=== PATIENT | female | born 1965 | race Two or more races ===

== ENCOUNTER 2021-01-28 10:40 | Emergency (ER) | payer MEDICAID, OTHER ==
[~2021-01-28] VITALS: Ht 154.9 cm; Wt 77.1 kg
[2021-01-28 13:48] VITALS: BP 134/86
[2021-01-28] MEDS ORDERED: EPINEPHrine HCL 1 MG/1 ML AMP SC ONE (14:00)
[2021-01-28] MEDS ORDERED: methylPREDNISolone SOD SUCC 125 MG/2 ML VL IM ONE (14:00)
[2021-01-28] MEDS ORDERED: diphenhdrAMINE HCL 50 MG/1 ML VL IM ONE (14:00)
== END 2021-01-28 14:54 | disposition home or self-care (01) ==
LOC: ER 10:40
DX: T78.40XA Allergy, unspecified, initial encounter (principal); X58.XXXA Exposure to other specified factors, initial encounter
CPT/HCPCS: 96372; 99284; J0171; J1200; J2930

== ENCOUNTER 2021-02-06 09:13 | Emergency (ER) | payer MEDICAID ==
[~2021-02-06] VITALS: Ht 152.4 cm; Wt 79.4 kg
[2021-02-06 10:01] VITALS: BP 145/91
[2021-02-06] MEDS ORDERED: ACETAMINOPHEN/CODEINE#3 (300/30mg) TAB PO ONE (11:15)
[2021-02-06] MEDS ORDERED: ONDANSETRON ODT 4 MG TAB PO ONE (11:15)
== END 2021-02-06 11:48 | disposition home or self-care (01) ==
LOC: ER 09:13
DX: G44.209 Tension-type headache, unspecified, not intractable (principal); J45.909 Unspecified asthma, uncomplicated
CPT/HCPCS: 70450; 99284; Q0162

== ENCOUNTER 2022-02-24 09:38 | Inpatient (IN) | payer MEDICAID ==
[~2022-02-24] VITALS: Ht 152.4 cm; Wt 73.4 kg
[2022-02-24 10:29] LABS: Basophils # (auto) 0.1 10 ^3/uL (0-0.2); Basophils % (auto) 0.8 % (0.0-2.0); Eosinophils # (auto) 0.2 10 ^3/uL (0-0.8); Eosinophils % (auto) 3.3 % (0.0-7.0); Hematocrit 43.4 % (36.0-46.0); Hemoglobin 14.4 g/dL (12.2-16.2); Lymphocytes % (auto) 14.5 % (10.0-50.0); Mean Corpuscular Hemoglobin 28.6 pg (28.0-32.0); Mean Corpuscular Hgb Conc. 33.2 g/dL (32.0-36.0); Mean Corpuscular Volume 86.2 fL (80.0-100.0); Monocytes # (auto) 0.5 10 ^3/uL (0-1.3); Monocytes % (auto) 7.3 % (0.0-12.0); Neutrophils # (auto) 5.3 10 ^3/uL (1.6-8.6); Neutrophils % (auto) 74.1 % (37.0-80.0); Red Blood Cells 5.04 10^6/uL (4.0-5.20); Red Cell Distribution Width 14.7 % (11.8-14.3); White Blood Cell 7.1 10^3/uL (4.4-10.8)
[2022-02-24 10:40] LABS: Urine WBC None Seen /hpf (0 - 5)
[2022-02-24] MEDS ORDERED: ACETAMINOPHEN 500 MG TAB PO ONE (10:45)
[2022-02-24] MEDS ORDERED: cefTRIAXone 1GM/50ML D5W 50 ML IV ONE (10:45)
[2022-02-24] MEDS ORDERED: SODIUM CHLORIDE 0.9% 1,000 ML IV ONE (10:45)
[2022-02-24] MEDS ORDERED: ALBUTEROL SULF 2.5 MG/0.5ML(0.5%) NEB SOLN NEB ONE ×2 (10:45→15:15)
[2022-02-24] MEDS ORDERED: AZITHROMYCIN 500MG/ 250ML 250 ML IV ONE (10:45)
[2022-02-24] MEDS ORDERED: ASPirin 81 mg TAB PO ONE (10:45)
[2022-02-24] MEDS ORDERED: IPRATROPIUM BROM 0.5 MG/2.5ML INH SOL NEB ONE ×2 (10:45→15:15)
[2022-02-24 10:48] LABS: BUN/Creatinine Ratio 12.9; Calcium 8.5 mg/dL (8.5-10.1)
[2022-02-24 10:50] LABS: Bilirubin, Total 0.7 mg/dL (0.2-1.0); Total Protein 7.1 g/dL (6.4-8.2)
[2022-02-24 10:59] LABS: Urine Bacteria NONE SEEN /hpf (None Seen); Urine Blood Negative /uL (Negative); Urine Specific Gravity 1.017 (1.001-1.035)
[2022-02-24 14:09] LABS: INR 0.97 (0.9-1.15); Partial Thromboplastin Time 27.2 sec (24.6-33.4)
[2022-02-24] MEDS ORDERED: DEXTROSE (50%) 50ML SYRG IV PRN (16:15)
[2022-02-24] MEDS ORDERED: ONDANSETRON HCL 4 MG/2 ML VIAL IV PRN (16:15)
[2022-02-24] MEDS ORDERED: DOCUSATE SOD 100 MG CAP PO PRN (16:15)
[2022-02-24] MEDS ORDERED: NITROGLYCERIN 0.4 MG SL TAB SL PRN (16:15)
[2022-02-24] MEDS ORDERED: MORPHINE SULFATE INJ 2 MG/ml SYRG IV PRN (16:15)
[2022-02-24] MEDS ORDERED: HYDROmorphone HCL 2 MG/ML VL/or syr IV PRN (16:15)
[2022-02-24] MEDS ORDERED: ACETAMINOPHEN 325 MG TAB PO PRN (16:15)
[2022-02-24] MEDS: ENOXAPARIN SOD 40 MG/0.4 ML SYRINGE SC SCH (16:56)
[2022-02-24] MEDS: ACCU-CHEK COMFORT CURVE STRIP VI SCH (16:57)
[2022-02-24] MEDS: methylPREDNISolone SOD SUCC 125 MG/2 ML VL IV SCH (16:57)
[2022-02-24] MEDS: InsuLIN REG 1unit/0.01ml Soln (100units/ml) SC SCH ×2 (17:04→21:44)
[2022-02-24] MEDS ORDERED: MONT-8 PO (19:07)
[2022-02-24] MEDS ORDERED: METF-370 PO (19:07)
[2022-02-24] MEDS ORDERED: ATOR20TA50 PO (19:07)
[2022-02-24 19:18] VITALS: BP 134/75
[2022-02-24 22:00] VITALS: BP 114/73
[2022-02-25 04:30] VITALS: BP 117/71
[2022-02-25] MEDS: SODIUM CHLOR 0.9% PF (SALINE LOCK) 10ML VIAL/SYR IV SCH ×4 (04:44→21:30)
[2022-02-25] MEDS: ACCU-CHEK COMFORT CURVE STRIP VI SCH ×5 (04:45→21:26)
[2022-02-25] MEDS: methylPREDNISolone SOD SUCC 125 MG/2 ML VL IV SCH ×5 (04:47→21:25)
[2022-02-25] MEDS: InsuLIN REG 1unit/0.01ml Soln (100units/ml) SC SCH ×4 (07:13→21:32)
[2022-02-25 09:00] VITALS: BP 117/72
[2022-02-25] MEDS: ENOXAPARIN SOD 40 MG/0.4 ML SYRINGE SC SCH (09:22)
[2022-02-25] MEDS: MONTELUKAST SODIUM 10 MG TAB PO SCH (09:22)
[2022-02-25 13:00] VITALS: BP 100/58
[2022-02-25 17:00] VITALS: BP 138/89
[2022-02-25] MEDS ORDERED: ALBU108A5 INH (19:59)
[2022-02-25 22:00] VITALS: BP 129/57
[2022-02-25] MEDS ORDERED: ACETYLCYSTEINE 10 %(100MG/ML) SOL 4ML NEB ONE (22:15)
[2022-02-25] MEDS ORDERED: ALBUTEROL SULF 2.5 MG/0.5ML(0.5%) NEB SOLN NEB PRN (22:15)
[2022-02-26] MEDS ORDERED: TEMAZEPAM 15 MG CAP PO ONE (01:00)
[2022-02-26] MEDS: methylPREDNISolone SOD SUCC 125 MG/2 ML VL IV SCH (04:54)
[2022-02-26 05:00] VITALS: BP 130/78
[2022-02-26] MEDS: ALBUTEROL SULF 2.5 MG/0.5ML(0.5%) NEB SOLN NEB SCH ×3 (06:33→19:00)
[2022-02-26] MEDS: SODIUM CHLOR 0.9% PF (SALINE LOCK) 10ML VIAL/SYR IV SCH ×3 (06:43→21:46)
[2022-02-26] MEDS: ACCU-CHEK COMFORT CURVE STRIP VI SCH ×4 (06:48→21:47)
[2022-02-26] MEDS: InsuLIN REG 1unit/0.01ml Soln (100units/ml) SC SCH ×4 (06:49→21:49)
[2022-02-26 07:40] VITALS: BP 130/78
[2022-02-26 08:50] VITALS: BP 132/88
[2022-02-26] MEDS: MONTELUKAST SODIUM 10 MG TAB PO SCH (09:24)
[2022-02-26] MEDS: ENOXAPARIN SOD 40 MG/0.4 ML SYRINGE SC SCH (09:25)
[2022-02-26] MEDS: methylPREDNISolone SOD SUCC 40 MG/ML VL IV SCH ×2 (10:32→21:47)
[2022-02-26 12:40] VITALS: BP 134/86
[2022-02-26 16:00] VITALS: BP 137/82
[2022-02-26 22:00] VITALS: BP 134/83
[2022-02-27 05:00] VITALS: BP 135/89
[2022-02-27] MEDS: SODIUM CHLOR 0.9% PF (SALINE LOCK) 10ML VIAL/SYR IV SCH (05:12)
[2022-02-27] MEDS: ALBUTEROL SULF 2.5 MG/0.5ML(0.5%) NEB SOLN NEB SCH ×2 (05:50→12:38)
[2022-02-27] MEDS: ACCU-CHEK COMFORT CURVE STRIP VI SCH ×2 (06:10→11:30)
[2022-02-27] MEDS: InsuLIN REG 1unit/0.01ml Soln (100units/ml) SC SCH ×2 (06:23→11:30)
[2022-02-27 06:44] LABS: Basophils # (auto) 0 10 ^3/uL (0-0.2); Basophils % (auto) 0.1 % (0.0-2.0); Eosinophils # (auto) 0 10 ^3/uL (0-0.8); Hematocrit 40.2 % (36.0-46.0); Hemoglobin 13.5 g/dL (12.2-16.2); Lymphocytes # (auto) 1.8 10 ^3/uL (0.4-5.4); Lymphocytes % (auto) 15.2 % (10.0-50.0); Mean Corpuscular Hemoglobin 28.6 pg (28.0-32.0); Mean Corpuscular Hgb Conc. 33.6 g/dL (32.0-36.0); Mean Corpuscular Volume 85.2 fL (80.0-100.0); Monocytes # (auto) 0.5 10 ^3/uL (0-1.3); Monocytes % (auto) 3.8 % (0.0-12.0); Neutrophils # (auto) 9.7 10 ^3/uL (1.6-8.6); Neutrophils % (auto) 80.9 % (37.0-80.0); Nucleated Red Blood Cells % 0.1 %; Red Blood Cells 4.71 10^6/uL (4.0-5.20); Red Cell Distribution Width 14.9 % (11.8-14.3)
[2022-02-27 07:07] LABS: BUN/Creatinine Ratio 29.3; Calcium 9.1 mg/dL (8.5-10.1); Potassium 3.9 mmol/L (3.5-5.1)
[2022-02-27 09:28] VITALS: BP 134/84
[2022-02-27] MEDS ORDERED: PRED20TA2 PO (09:35)
[2022-02-27] MEDS ORDERED: AMOX500T86 PO (09:36)
[2022-02-27] MEDS: ENOXAPARIN SOD 40 MG/0.4 ML SYRINGE SC SCH (10:00)
[2022-02-27] MEDS: methylPREDNISolone SOD SUCC 40 MG/ML VL IV SCH (10:29)
[2022-02-27] MEDS: MONTELUKAST SODIUM 10 MG TAB PO SCH (10:29)
[2022-02-27 11:06] VITALS: BP 134/84
[2022-02-27 12:56] VITALS: BP 135/85
== END 2022-02-27 13:20 | disposition home or self-care (01) | DRG 139 ==
LOC: ER 09:38 → TELE 16:05 → TELE-CENTR 19:01
PROVIDERS: ADMIT Internal Medicine; ATTEND Internal Medicine Pulmonary Disease
DX: J18.9 Pneumonia, unspecified organism (principal); J45.901 Unspecified asthma with (acute) exacerbation; E11.9 Type 2 diabetes mellitus without complications; E66.9 Obesity, unspecified; E78.5 Hyperlipidemia, unspecified; J98.11 Atelectasis; Z68.31 Body mass index [BMI] 31.0-31.9, adult; Z20.822 Contact with and (suspected) exposure to COVID-19; Z79.84 Long term (current) use of oral hypoglycemic drugs
CPT/HCPCS: 36415; 36600; 71046; 71250; 80048; 80053; 81001; 82805; 82962; 83605; 83735; 83880; 84484; 85025; 85379; 85610; 85730; 87040; 87804; 93005; 93306; 94640; 96365; 96368; 96372; 96375; G0378; J0696; J1815

== ENCOUNTER 2022-08-16 08:16 | Emergency (ER) | payer MEDICAID ==
[~2022-08-16] VITALS: Ht 152.4 cm; Wt 73.4 kg
[~2022-08-16 08:16] MED LIST: ALBU108A5 INH; AMOX500T86 PO; ATOR20TA50 PO; METF-370 PO; MONT-8 PO; PRED20TA2 PO
[2022-08-16 08:52] VITALS: BP 131/73
[2022-08-16] MEDS ORDERED: IPRATROPIUM BROM 0.5 MG/2.5ML INH SOL NEB ONE (09:00)
[2022-08-16] MEDS ORDERED: methylPREDNISolone SOD SUCC 125 MG/2 ML VL IM ONE (09:00)
[2022-08-16] MEDS ORDERED: ALBUTEROL SULF 2.5 MG/0.5ML(0.5%) NEB SOLN NEB ONE (09:00)
[2022-08-16] MEDS ORDERED: cefTRIAXone SOD 1,000 MG VL IM ONE (09:00)
[2022-08-16] MEDS ORDERED: LIDOCAINE 1% HCL (LOCAL ANESTH.) INJ 20ML MDV ONE (09:02)
[2022-08-16] MEDS ORDERED: PROM1SOL4 PO (09:36)
[2022-08-16] MEDS ORDERED: LEVO500T31 PO (09:36)
[2022-08-16] MEDS ORDERED: PRED20TA2 PO (09:36)
== END 2022-08-16 09:39 | disposition home or self-care (01) ==
LOC: ER 08:16
DX: J45.901 Unspecified asthma with (acute) exacerbation (principal); J03.90 Acute tonsillitis, unspecified; E11.9 Type 2 diabetes mellitus without complications; E78.5 Hyperlipidemia, unspecified
CPT/HCPCS: 71046; 94640; 96372; 99284; J0696; J2001; J2930; J7644